=== PATIENT | female | born 1975 | race African-American/Black ===

== ENCOUNTER 2019-01-02 15:23 | Inpatient (IN) | payer OTHER ==
[2019-01-02] MEDS ORDERED: Sodium Chloride 0.9% 10 ML Syringe FLUSH PRN (19:49)
[2019-01-02] MEDS ORDERED: Nalbuphine 10 MG/1 ML Vial IVPUSH PRN (19:49)
[2019-01-02] MEDS ORDERED: Ondansetron 4 MG/2 ML SDV IVPUSH PRN (19:49)
--- NOTE | 2019-01-02 19:53 | PCM.LDHP ---
L&D History of Present Illness - General Date of Service: 01/02/19 Admit Problem/Dx: Patient Status Order with Admit Dx/Problem 01/02/19 19:49 Patient Status [ADT] Routine Admission Diagnosis/Problem Admission Diagnosis/Problem Advanced maternal age Source of Information: Patient History Limitations: Reports: No Limitations - History of Present Illness Introduction:: 43 y/o at 39 0/7 wks presents for IOL for AMA. Doing well today. Some contractions. No significant pain. - Related Data Allergies/Adverse Reactions: Allergies Allergy/AdvReac Type Severity Reaction Status Date / Time No Known Allergies Allergy Verified 01/02/19 21:27 Home Medications: Home Meds Pnv #14/Ferrous Fum/Folic Acid [Completenate] 1 each PO DAILY 01/02/19 [History] Past Medical History [employer] History: Reports: : 6 Para: 5 LMP (Approximate): - Infectious Disease History Infectious Disease History: Reports: Other (See Below) (Malaria) Social & Family History - Tobacco Use Smoking Status *Q: Never Smoker - Alcohol Use Alcohol Use History: No - Recreational Drug Use Recreational Drug Use: No H&P Review of Systems - Review of Systems: Review Of Systems: See Below General: Reports: No Symptoms Pulmonary: Reports: No Symptoms Cardiovascular: Reports: No Symptoms Gastrointestinal: Reports: No Symptoms Genitourinary: Reports: No Symptoms Musculoskeletal: Reports: No Symptoms Psychiatric: Reports: No Symptoms Neurological: Reports: No Symptoms L&D Exam - Exam Exam: See Below - OB Specific Contraction Intensity: Irritability Movement: Active Heart Tones: Present Heart Tones per Min: 145 Heart Rate (FHR) Variability: Moderate (6-25 bmp) Presentation: Vertex - Garcia Score Garcia Score Cervix Position: Midposition Garcia Score Consistency: Soft Garcia Score Effacement: 51-70% Garcia Score Dilation: 1-2 cm Garcia Score 's Station: -3 Garcia Score Total: 6 - Exam General: Alert, Oriented, Cooperative Lungs: Clear to Auscultation, Normal Respiratory Effort Cardiovascular: Regular Rate, Regular Rhythm GI/Abdominal Exam: Soft, Non-Tender Genitourinary: Normal external exam Extremities: Normal Inspection Skin: Warm, Dry, Intact - Patient Data Result Diagrams: 01/02/19 20:23 - Problem List (1) AMA (advanced maternal age) multigravida 35+ SNOMED Code(s): 578922332 ICD Code: O09.529 - SUPERVISION OF ELDERLY MULTIGRAVIDA, UNSPECIFIED TRIMESTER Status: Acute Current Visit: Yes Qualifiers: Trimester: third trimester Qualified Code(s): O09.523 - Supervision of elderly multigravida, third trimester (2) 39 weeks gestation of SNOMED Code(s): 81532465 ICD Code: Z3A.39 - 39 WEEKS GESTATION OF Status: Acute Current Visit: Yes Problem List Initiated/Reviewed/Updated: Yes Orders Last 24hrs: Active Orders 24 hr Category Date Time Status Patient Status [ADT] Routine ADT 01/02/19 19:49 Ordered Activity as Tolerated [RC] PFP Care 01/02/19 19:49 Ordered Communication Order [RC] ASDIRECTED Care 01/02/19 19:49 Ordered Communication Order [RC] ASDIRECTED Care 01/02/19 19:49 Ordered Communication Order [RC] ASDIRECTED Care 01/02/19 19:49 Ordered Heart Tones [RC] ASDIRECTED Care 01/02/19 19:50 Ordered Monitoring [RC] INTERMITTENT Care 01/02/19 19:49 Ordered Non Stress Test [RC] PER UNIT ROUTINE Care 01/02/19 19:49 Ordered Notify Provider [RC] ASDIRECTED Care 01/02/19 19:49 Ordered Notify Provider [RC] PRN Care 01/02/19 19:49 Ordered Peripheral IV Care [RC] . DIRECTED Care 01/02/19 19:50 Ordered Up ad Kim [RC] ASDIRECTED Care 01/02/19 19:50 Ordered Vaginal Exam [RC] ASDIRECTED Care 01/02/19 19:49 Ordered Vital Signs [RC] ASDIRECTED Care 01/02/19 19:49 Ordered Regular Diet [DIET] Diet 01/02/19 Breakfast Ordered CBC W/O DIFF,HEMOGRAM [HEME] Routine Lab 01/02/19 19:49 Ordered RAPID PLASMA REAGIN,RPR [CHEM] Routine Lab 01/02/19 19:49 Ordered TYPE AND SCREEN [BBK] Routine Lab 01/02/19 19:49 Ordered Lactated Ringers [Ringers, Lactated] 1,000 ml Med 01/02/19 20:00 Ordered IV ASDIRECTED Nalbuphine [Nubain] Med 01/02/19 19:49 Ordered 10 mg IVPUSH Q2H PRN Ondansetron [Zofran] Med 01/02/19 19:49 Ordered 4 mg IVPUSH Q4H PRN Oxytocin/Lactated Ringers [Pitocin in LR 10 Units/1,000 Med 01/02/19 20:00 Ordered ML] 10 unit in 1,000 ml IV .CONTINUOUS Oxytocin/Lactated Ringers [Pitocin in LR 10 Units/1,000 Med 01/02/19 20:00 Ordered ML] 10 unit in 1,000 ml IV TITRATE Sodium Chloride 0.9% [Saline Flush] Med 01/02/19 19:49 Ordered 10 ml FLUSH ASDIRECTED PRN Electronic Heart Tones Ext w TOCO [WOMSER] Ot 01/02/19 19:49 Ordered Routine Electronic Heart Tones Internal [WOMSER] Per Unit Ot 01/02/19 19:49 Ordered Routine Peripheral IV Insertion Adult [OM.PC] Routine Ot 01/02/19 19:49 Ordered Resuscitation Status Routine Resus Stat 01/02/19 19:49 Ordered Medication Orders Lactated Ringer's (Ringers, Lactated) 1,000 mls @ 40 mls/hr IV ASDIRECTED RADHAMES Oxytocin/Lactated Ringer's (Pitocin In Lr 10 Units/1,000 Ml) 10 unit in 1,000 mls @ 12 mls/hr IV TITRATE RADHAMES; Protocol Oxytocin/Lactated Ringer's (Pitocin In Lr 10 Units/1,000 Ml) 10 unit in 1,000 mls @ 500 mls/hr IV .CONTINUOUS RADHAMES Nalbuphine HCl (Nubain) 10 mg IVPUSH Q2H PRN PRN Reason: Pain Ondansetron HCl (Zofran) 4 mg IVPUSH Q4H PRN PRN Reason: Nausea/Vomiting Sodium Chloride (Saline Flush) 10 ml FLUSH ASDIRECTED PRN PRN Reason: Keep Vein Open Assessment/Plan Comment:: 43 y/o at 39 0/7 wks presents for IOL for AMA * Labs * GBS negative, no need for antibiotics * Pain management per patient preference * Anticipate
[2019-01-02] MEDS ORDERED: Oxytocin/Lactated Ringers 10 UNIT/1,000 ML BAG IV SCH (20:00)
[2019-01-02] MEDS: Lactated Ringers 1,000 ML IV SCH (21:30)
[2019-01-02] MEDS: Oxytocin/Lactated Ringers 10 UNIT/1,000 ML BAG IV SCH (21:34)
--- NOTE | 2019-01-03 06:34 | PCM.PNLD ---
Labor Progress Note - VS & Meds Vital Signs: Last Vital Signs Temp 36.7 C 01/02/19 20:48 Pulse 78 01/02/19 20:48 Resp 16 01/02/19 20:48 BP 117/83 01/02/19 20:48 Pulse Ox 98 01/02/19 20:48 Active Medications: Current Medications Lactated Ringer's (Ringers, Lactated) 1,000 mls @ 40 mls/hr IV ASDIRECTED RADHAMES Last Admin: 01/02/19 21:30 Dose: 40 mls/hr Oxytocin/Lactated Ringer's (Pitocin In Lr 10 Units/1,000 Ml) 10 unit in 1,000 mls @ 12 mls/hr IV TITRATE RADHAMES; Protocol Last Admin: 01/02/19 21:34 Dose: 2 munits/min, 12 mls/hr Oxytocin/Lactated Ringer's (Pitocin In Lr 10 Units/1,000 Ml) 10 unit in 1,000 mls @ 500 mls/hr IV .CONTINUOUS RADHAMES Nalbuphine HCl (Nubain) 10 mg IVPUSH Q2H PRN PRN Reason: Pain Ondansetron HCl (Zofran) 4 mg IVPUSH Q4H PRN PRN Reason: Nausea/Vomiting Sodium Chloride (Saline Flush) 10 ml FLUSH ASDIRECTED PRN PRN Reason: Keep Vein Open - Uterine Contractions Uterine Monitoring Mode: External [place] Contraction Intensity: Moderate Uterine Resting Tone: Soft - Monitoring Monitor Mode: External Ultrasound Heart Rate (FHR) Baseline: 135 Heart Rate (FHR) Variability: Moderate (6-25 bmp) Accelerations: Present, 15x15 Decelerations: None Strip Review: Category I - Vaginal Exam Dilation (cm): 4 - Labor Progress (Free Text) Labor Progress: Doing well. Pitocin at 12. AROM last night around 0200. Rating contractions as a 6/10. Continue present management
[2019-01-03] MEDS: Lactated Ringers 1,000 ML IV SCH (12:14)
[2019-01-03] MEDS: Oxytocin/Lactated Ringers 10 UNIT/1,000 ML BAG IV SCH (13:45)
--- NOTE | 2019-01-03 17:05 | PCM.DEL ---
L & D Note - General Info Date of Service: 01/03/19 - Delivery Note Labor: Induced by ARM, Induced by Oxytocin Cervical Ripening Method: Balloon Device Delivery Outcome: Livebirth Infant Delivery Mode: Vacuum Extraction Presentation: Right Occiput Anterior (SOLANGE) Nuchal Cord: None Anesthesia Type: None Amniotic Fluid Description: Clear Episiotomy Type: None Laceration: None Placenta: Intact, Spontaneous Cord: 3 Vessels Estimated Blood Loss: 200 Resuscitation Needed: Yes [place]: Bulb Syringe, Stimulated, Warmed, [place] Used, Warmer Used Delivery Comments (Free Text/Narrative):: The patient was pushing in the dorsal lithotomy position. Sterile vaginal exam complete/complete/+2 station. head in SOLANGE presentation. Maternal pushing effort was good and the pelvis was felt to be adequate for an instrument assisted delivery. Given maternal exhaustion and patient request for assistance the decision was made to proceed with vacuum assisted vaginal delivery. The mushroom cup was placed without difficulty with care to avoid the vaginal side redd. Subsequent vacuum assisted vaginal delivery with pushing. Total pressure applied 550 mmHG over 5 minutes/4 contractions. Total pop offs 0. Suction was removed following delivery of the head. No nuchal cord present. The remainder of the delivered without difficulty. The umbilical cord was clamped and cut and the was taken to warmer for assessment. Placenta allowed time to separate and expelled intact. Inspection of the perineum following delivery with no lacerations. Vacuum Extractor Progress Note - Alternative Labor Strategies Considered Alternative Labor Strategies Considered:: Reports: Yes Strategies Considered:: Reports: Contraction Intensity Adequate, Position Changes Used to Facilitate Rotation & Descent, Empty Bladder Indications Considered:: Reports: Yes Indications:: Reports: Shortening of 2nd Stage for Maternal Benefit Time Out:: Reports: Yes - Patient Prepared Patient Prepared:: Reports: Yes Informed Consent:: Reports: Verbal Risks: Reports: Yes Risks Include:: Reports: Laceration, Maternal Injury, Other Anesthesia/Analgesia Adequate:: Reports: Yes - Probability of Success High Probability of Success:: Reports: Yes Weight Estimated:: Reports: AGA Patient Diabetic:: Reports: No Pelvis Adequate:: Reports: Yes Position:: SOLANGE Asynclitic:: Reports: No Station:: +2 - Application Time Maximum Application Time & Number of Pop-Offs Predetermined:: Reports: Yes Maximum Pressure Maintained in [place] (cm Hg):: 550 Total Application Time (min): *max=20min: 5 Number of Times Cup Disengaged:: 0 Type of Vacuum Used:: Reports: Cup: Mushroom type Vacuum Extraction: Successful - Exit Strategy Exit strategy available:: Reports: Yes and resuscitation teams readily available:: Reports: Yes - General Info Date of Service: 01/03/19 - Patient Data Vitals - Most Recent: Last Vital Signs Temp 36.7 C 01/02/19 20:48 Pulse 68 01/03/19 08:02 Resp 16 01/02/19 20:48 BP 121/77 01/03/19 01:46 Pulse Ox 98 01/02/19 20:48 Weight - Most Recent: 62.596 kg I&O - Last 24 Hours: Intake & Output 01/03/19 01/03/19 01/03/19 06:59 14:59 22:59 Intake Total 1950 Balance 1950 Lab Results Last 24 Hours: Laboratory Results - last 24 hr 01/02/19 01/02/19 01/02/19 Range/Units 20:23 20:23 20:23 WBC 8.23 (3.98-10.04) K/mm3 RBC 4.04 (3.98-5.22) M/mm3 Hgb 9.8 L (11.2-15.7) gm/L Hct 31.7 L (34.1-44.9) % MCV 78.5 L (79.4-94.8) fl MCH 24.3 L (25.6-32.2) pg MCHC 30.9 L (32.2-35.5) g/dl RDW Std Deviation 41.1 (36.4-46.3) fL Plt Count 270 (182-369) K/mm3 MPV 9.4 (9.4-12.3) fl Cord ABG pH (7.22-7.32) Cord ABG pCO2 (42-58) Cord ABG pO2 (12-24) Cord ABG HCO3 (24-26) Cord ABG Base Excess (-5.5-0.1) RPR Non-reactive (NONREACTIVE) Blood Type O POSITIVE Gel Antibody Screen Negative 01/03/19 Range/Units 15:30 WBC (3.98-10.04) K/mm3 RBC (3.98-5.22) M/mm3 Hgb (11.2-15.7) gm/L Hct (34.1-44.9) % MCV (79.4-94.8) fl MCH (25.6-32.2) pg MCHC (32.2-35.5) g/dl RDW Std Deviation (36.4-46.3) fL Plt Count (182-369) K/mm3 MPV (9.4-12.3) fl Cord ABG pH 7.24 (7.22-7.32) Cord ABG pCO2 49.5 (42-58) Cord ABG pO2 32 H (12-24) Cord ABG HCO3 20.5 L (24-26) Cord ABG Base Excess -6.7 L (-5.5-0.1) RPR (NONREACTIVE) Blood Type Gel Antibody Screen Med Orders - Current: Current Medications Lactated Ringer's (Ringers, Lactated) 1,000 mls @ 40 mls/hr IV ASDIRECTED RADHAMES Last Admin: 01/03/19 12:14 Dose: 40 mls/hr Oxytocin/Lactated Ringer's (Pitocin In Lr 10 Units/1,000 Ml) 10 unit in 1,000 mls @ 12 mls/hr IV TITRATE RADHAMES; Protocol Last Admin: 01/03/19 13:45 Dose: 16 munits/min, 96 mls/hr Oxytocin/Lactated Ringer's (Pitocin In Lr 10 Units/1,000 Ml) 10 unit in 1,000 mls @ 500 mls/hr IV .CONTINUOUS RADHAMES Nalbuphine HCl (Nubain) 10 mg IVPUSH Q2H PRN PRN Reason: Pain Last Admin: 01/03/19 12:12 Dose: 10 mg Ondansetron HCl (Zofran) 4 mg IVPUSH Q4H PRN PRN Reason: Nausea/Vomiting Sodium Chloride (Saline Flush) 10 ml FLUSH ASDIRECTED PRN PRN Reason: Keep Vein Open - Problem List & Annotations (1) AMA (advanced maternal age) multigravida 35+ SNOMED Code(s): 423003187 Code(s): O09.529 - SUPERVISION OF ELDERLY MULTIGRAVIDA, UNSPECIFIED TRIMESTER Status: Acute Current Visit: Yes Qualifiers: Trimester: third trimester Qualified Code(s): O09.523 - Supervision of elderly multigravida, third trimester (2) 39 weeks gestation of SNOMED Code(s): 61717306 Code(s): Z3A.39 - 39 WEEKS GESTATION OF Status: Acute Current Visit: Yes (3) Vacuum extraction, delivered, current hospitalization SNOMED Code(s): 666758509 Code(s): O66.5 - ATTEMPTED APPLICATION OF VACUUM EXTRACTOR AND FORCEPS Status: Acute Current Visit: Yes - Problem List Review Problem List Initiated/Reviewed/Updated: Yes - My Orders Last 24 Hours: My Active Orders 01/02/19 19:49 Patient Status [ADT] Routine Activity as Tolerated [RC] PFP Communication Order [RC] ASDIRECTED Communication Order [RC] ASDIRECTED Communication Order [RC] ASDIRECTED Notify Provider [RC] ASDIRECTED Notify Provider [RC] PRN Nalbuphine [Nubain] 10 mg IVPUSH Q2H PRN Ondansetron [Zofran] 4 mg IVPUSH Q4H PRN Sodium Chloride 0.9% [Saline Flush] 10 ml FLUSH ASDIRECTED PRN Electronic Heart Tones Ext w TOCO [WOMSER] Routine Electronic Heart Tones Internal [WOMSER] Per Unit Routine Peripheral IV Insertion Adult [OM.PC] Routine Resuscitation Status Routine 01/02/19 19:50 Heart Tones [RC] ASDIRECTED Peripheral IV Care [RC] . DIRECTED Up ad Kim [RC] ASDIRECTED 01/02/19 20:00 Lactated Ringers [Ringers, Lactated] 1,000 ml IV ASDIRECTED Oxytocin/Lactated Ringers [Pitocin in LR 10 Units/1,000 ML] 10 unit in 1,000 ml IV .CONTINUOUS Oxytocin/Lactated Ringers [Pitocin in LR 10 Units/1,000 ML] 10 unit in 1,000 ml IV TITRATE - Assessment Assessment:: 43 y/o G6 now P6006 PPD#0 from [facility] at 39 1/7 wks - Plan Plan:: [facility] * Routine cares * Encourage breast feeding * Discharge home in 1-2 days
[2019-01-03] MEDS ORDERED: Witch Hazel Medicated Pads 40/Jar TOP PRN (17:08)
[2019-01-03] MEDS ORDERED: Lanolin 100% Cream 7 GM Tube TOP PRN (17:08)
[2019-01-03] MEDS ORDERED: Benzocaine/Menthol 20%-0.5% Spray 56 GM Canister TOP PRN (17:08)
[2019-01-03] MEDS: Ibuprofen 600 MG Tab PO PRN (17:44)
[2019-01-04] MEDS: Ibuprofen 600 MG Tab PO PRN ×3 (00:06→16:13)
--- NOTE | 2019-01-04 07:59 | PCM.PNPP ---
- General Info Date of Service: 01/04/19 Functional Status: Reports: Pain Controlled, Tolerating Diet, Ambulating, Urinating - Review of Systems General: Reports: No Symptoms Pulmonary: Reports: No Symptoms Cardiovascular: Reports: No Symptoms Gastrointestinal: Reports: Other (significant cramping) Genitourinary: Reports: No Symptoms Musculoskeletal: Reports: No Symptoms Neurological: Reports: No Symptoms - Patient Data Vital Signs - Most Recent: Last Vital Signs Temp 36.8 C 01/04/19 05:25 Pulse 71 01/04/19 05:25 Resp 14 01/04/19 05:25 BP 93/57 L 01/04/19 05:25 Pulse Ox 98 01/04/19 05:25 Weight - Most Recent: 62.596 kg I&O - Last 24 Hours: Intake & Output 01/03/19 01/04/19 01/04/19 22:59 06:59 14:59 Intake Total 180 Balance 180 Lab Results - Last 24 Hours: Laboratory Results - last 24 hr 01/02/19 01/03/19 Range/Units 20:23 15:30 Cord ABG pH 7.24 (7.22-7.32) Cord ABG pCO2 49.5 (42-58) Cord ABG pO2 32 H (12-24) Cord ABG HCO3 20.5 L (24-26) Cord ABG Base Excess -6.7 L (-5.5-0.1) RPR Non-reactive (NONREACTIVE) Med Orders - Current: Current Medications Acetaminophen (Tylenol) 650 mg PO Q4H PRN PRN Reason: mild pain or fever Benzocaine/Menthol (Dermoplast Pain Relief [place]) 0 gm TOP ASDIRECTED PRN PRN Reason: Perineal Comfort Measure Emollient Ointment (Lansinoh Hpa) 0 gm TOP ASDIRECTED PRN PRN Reason: Sore Nipples Ibuprofen (Motrin) 600 mg PO Q6H PRN PRN Reason: Mild pain or fever Last Admin: 01/04/19 07:56 Dose: 600 mg Witch Lorena (Tucks) 1 pad TOP ASDIRECTED PRN PRN Reason: Perineal Comfort Measure Discontinued Medications Lactated Ringer's (Ringers, Lactated) 1,000 mls @ 40 mls/hr IV ASDIRECTED RADHAMES Last Admin: 01/03/19 12:14 Dose: 40 mls/hr Oxytocin/Lactated Ringer's (Pitocin In Lr 10 Units/1,000 Ml) 10 unit in 1,000 mls @ 12 mls/hr IV TITRATE RADHAMES; Protocol Last Titration: 01/03/19 15:25 Dose: 500 mls/hr Oxytocin/Lactated Ringer's (Pitocin In Lr 10 Units/1,000 Ml) 10 unit in 1,000 mls @ 500 mls/hr IV .CONTINUOUS RADHAMES Nalbuphine HCl (Nubain) 10 mg IVPUSH Q2H PRN PRN Reason: Pain Last Admin: 01/03/19 12:12 Dose: 10 mg Ondansetron HCl (Zofran) 4 mg IVPUSH Q4H PRN PRN Reason: Nausea/Vomiting Sodium Chloride (Saline Flush) 10 ml FLUSH ASDIRECTED PRN PRN Reason: Keep Vein Open - Interaction Disposition, : [place] in Room with Family Interaction: Holding Infant Feeding: Attempted ; Nursed Fair/Poor Support Person: Significant Other - Recovery Exam Fundal Tone: Firm Fundal Level: 1 Fingerbreadths Below Umbilicus Fundal Placement: Midline Lochia Amount: Small Lochia Color: Rubra/Red Perineum Description: Intact, Minimal Bruising/Swelling Bladder Status: Voiding - Exam General: Alert, Oriented, Cooperative GI/Abdominal Exam: Soft, Non-Tender Extremities: Normal Inspection Skin: Warm, Dry, Intact - Problem List & Annotations (1) AMA (advanced maternal age) multigravida 35+ SNOMED Code(s): 130153206 Code(s): O09.529 - SUPERVISION OF ELDERLY MULTIGRAVIDA, UNSPECIFIED TRIMESTER Status: Acute Current Visit: Yes Qualifiers: Trimester: third trimester Qualified Code(s): O09.523 - Supervision of elderly multigravida, third trimester (2) 39 weeks gestation of SNOMED Code(s): 13215689 Code(s): Z3A.39 - 39 WEEKS GESTATION OF Status: Acute Current Visit: Yes (3) Vacuum extraction, delivered, current hospitalization SNOMED Code(s): 676462577 Code(s): O66.5 - ATTEMPTED APPLICATION OF VACUUM EXTRACTOR AND FORCEPS Status: Acute Current Visit: Yes - Problem List Review Problem List Initiated/Reviewed/Updated: Yes - My Orders Last 24 Hours: My Active Orders 01/03/19 17:08 Activity as Tolerated [RC] PER UNIT ROUTINE Vital Signs [RC] 03,09,15,21 Acetaminophen [Tylenol] 650 mg PO Q4H PRN Benzocaine/Menthol [Dermoplast Pain Relief [place]] See Dose Instructions TOP ASDIRECTED PRN Ibuprofen [Motrin] 600 mg PO Q6H PRN Lanolin [Lansinoh HPA] See Dose Instructions TOP ASDIRECTED PRN Witch [place]orena [Tucks] 1 pad TOP ASDIRECTED PRN Assess Lochia [WOMSER] Per Unit Routine Assess Uterine Involution [WOMSER] Per Unit Routine Breast Pump [WOMSER] Per Unit Routine Ice Therapy [OM.PC] Per Unit Routine Medication Administration Instruction [OM.PC] Routine Perineal Care [OM.PC] Per Unit Routine Peripheral IV Discontinue [OM.PC] Routine Sitz Bath [OM.PC] Per Unit Routine 01/03/19 17:15 Heat Therapy [OM.PC] PRN 01/03/19 Dinner Regular Diet [DIET] 01/04/19 17:15 Heat Therapy [OM.PC] PRN - Assessment Assessment:: 43 y/o G6 now P6006 PPD#1 from [facility] - Plan Plan:: [facility] * Routine cares * Breast feeding * Discharge home today vs tomorrow pending clinical course
[2019-01-04] MEDS: Acetaminophen 325 MG Tab PO PRN (20:10)
[2019-01-05] MEDS: Ibuprofen 600 MG Tab PO PRN (03:56)
--- NOTE | 2019-01-05 06:46 | PCM.PNPP ---
- General Info Date of Service: 01/05/19 Functional Status: Reports: Pain Controlled, Tolerating Diet, Ambulating, Urinating - Review of Systems General: Reports: No Symptoms Pulmonary: Reports: No Symptoms Cardiovascular: Reports: No Symptoms Gastrointestinal: Reports: Other (strong cramping) Genitourinary: Reports: No Symptoms Musculoskeletal: Reports: No Symptoms Neurological: Reports: No Symptoms - Patient Data Vital Signs - Most Recent: Last Vital Signs Temp 37.1 C 01/05/19 04:09 Pulse 76 01/05/19 04:09 Resp 12 01/05/19 04:09 BP 117/92 H 01/05/19 04:09 Pulse Ox 98 01/05/19 04:09 Weight - Most Recent: 62.596 kg I&O - Last 24 Hours: Intake & Output 01/04/19 01/04/19 01/05/19 14:59 22:59 06:59 Intake Total 120 Balance 120 Med Orders - Current: Current Medications Acetaminophen (Tylenol) 650 mg PO Q4H PRN PRN Reason: mild pain or fever Last Admin: 01/04/19 20:10 Dose: 650 mg Benzocaine/Menthol (Dermoplast Pain Relief [place]) 0 gm TOP ASDIRECTED PRN PRN Reason: Perineal Comfort Measure Emollient Ointment (Lansinoh Hpa) 0 gm TOP ASDIRECTED PRN PRN Reason: Sore Nipples Ibuprofen (Motrin) 600 mg PO Q6H PRN PRN Reason: Mild pain or fever Last Admin: 01/05/19 03:56 Dose: 600 mg Witch [place]ore[place] (Tucks) 1 pad TOP ASDIRECTED PRN PRN Reason: Perineal Comfort Measure Discontinued Medications Lactated Ringer's (Ringers, Lactated) 1,000 mls @ 40 mls/hr IV ASDIRECTED RADHAMES Last Admin: 01/03/19 12:14 Dose: 40 mls/hr Oxytocin/Lactated Ringer's (Pitocin In Lr 10 Units/1,000 Ml) 10 unit in 1,000 mls @ 12 mls/hr IV TITRATE RADHAMES; Protocol Last Titration: 01/03/19 15:25 Dose: 500 mls/hr Oxytocin/Lactated Ringer's (Pitocin In Lr 10 Units/1,000 Ml) 10 unit in 1,000 mls @ 500 mls/hr IV .CONTINUOUS RADHAMES Nalbuphine HCl (Nubain) 10 mg IVPUSH Q2H PRN PRN Reason: Pain Last Admin: 01/03/19 12:12 Dose: 10 mg Ondansetron HCl (Zofran) 4 mg IVPUSH Q4H PRN PRN Reason: Nausea/Vomiting Sodium Chloride (Saline Flush) 10 ml FLUSH ASDIRECTED PRN PRN Reason: Keep Vein Open - Infant Interaction Infant Disposition, : in Room with Family Interaction: Holding Infant Infant Feeding: Attempted ; Nursed Fair/Poor Support Person: Significant Other - Recovery Exam Fundal Tone: Firm Fundal Level: At Umbilicus Fundal Placement: Midline Lochia Amount: Small Lochia Color: Rubra/Red Perineum Description: Intact, Minimal Bruising/Swelling Episiotomy/Laceration: None Bladder Status: Voiding - Exam General: Alert, Oriented, Cooperative GI/Abdominal Exam: Soft, Non-Tender Extremities: Normal Inspection Skin: Warm, Dry, Intact - Problem List & Annotations (1) AMA (advanced maternal age) multigravida 35+ SNOMED Code(s): 588893961 Code(s): O09.529 - SUPERVISION OF ELDERLY MULTIGRAVIDA, UNSPECIFIED TRIMESTER Status: Acute Current Visit: Yes Qualifiers: Trimester: third trimester Qualified Code(s): O09.523 - Supervision of elderly multigravida, third trimester (2) 39 weeks gestation of SNOMED Code(s): 51476764 Code(s): Z3A.39 - 39 WEEKS GESTATION OF Status: Acute Current Visit: Yes (3) Vacuum extraction, delivered, current hospitalization SNOMED Code(s): 674824312 Code(s): O66.5 - ATTEMPTED APPLICATION OF VACUUM EXTRACTOR AND FORCEPS Status: Acute Current Visit: Yes - Problem List Review Problem List Initiated/Reviewed/Updated: Yes - My Orders Last 24 Hours: My Active Orders 01/04/19 17:15 Heat Therapy [OM.PC] PRN 01/05/19 06:45 Ready for Discharge [RC] PER UNIT ROUTINE - Assessment Assessment:: 43 y/o G6 now P6006 PPD#2 from [facility] - Plan Plan:: [facility] * Routine cares * Breast feeding * Discharge home today
--- NOTE | 2019-01-05 06:46 | PCM.DCSUM1 ---
Discharge Summary - Discharge Data Discharge Date: 01/05/19 Discharge Disposition: Home, Self-Care 01 Condition: Good - Discharge Diagnosis/Problem(s) (1) AMA (advanced maternal age) multigravida 35+ SNOMED Code(s): 328728190 ICD Code: O09.529 - SUPERVISION OF ELDERLY MULTIGRAVIDA, UNSPECIFIED TRIMESTER Status: Acute Current Visit: Yes Qualifiers: Trimester: third trimester Qualified Code(s): O09.523 - Supervision of elderly multigravida, third trimester (2) 39 weeks gestation of SNOMED Code(s): 90600543 ICD Code: Z3A.39 - 39 WEEKS GESTATION OF Status: Acute Current Visit: Yes (3) Vacuum extraction, delivered, current hospitalization SNOMED Code(s): 048083252 ICD Code: O66.5 - ATTEMPTED APPLICATION OF VACUUM EXTRACTOR AND FORCEPS Status: Acute Current Visit: Yes - Patient Summary/Data Complications: None Consults: None Recommended Follow-up Testing/Procedures: Follow up in 3 weeks for check Hospital Course: 43 y/o at 39 0/7 wks who presents for IOL for AMA. Done with machado bulb, pitocin, and AROM. Made slow, but steady change to complete dilation. Began pushing, but after about 1hr of pushing became exhausted and requested assistance. VAVD performed. This was uncomplicated, see delivery note. patient did well and was discharged home on PPD#2 - Patient Instructions Diet: Regular Diet as Tolerated Activity: As Tolerated Activity, Other: Pelvic rest for 6 weeks Driving: May Drive Today Showering/Bathing: May Shower Showering/Bathing, Other: May Bathe Notify Provider of: Fever, Increased Pain, Swelling and Redness, Drainage, Nausea and/or Vomiting - Discharge Plan *PRESCRIPTION DRUG MONITORING PROGRAM REVIEWED*: Not Applicable *COPY OF PRESCRIPTION DRUG MONITORING REPORT IN PATIENT OREN: Not Applicable Home Medications: Home Meds Pnv #14/Ferrous Fum/Folic Acid [Completenate] 1 each PO DAILY 01/02/19 [History] Ibuprofen [Motrin] 600 mg PO Q6H PRN tablet 01/04/19 [Rx] Referrals: Lashay Grant MD [Primary Care Provider] - (3 weeks for check ) - Discharge Summary/Plan Comment DC Time >30 min.: No - Patient Data Vitals - Most Recent: Last Vital Signs Temp 37.1 C 01/05/19 04:09 Pulse 76 01/05/19 04:09 Resp 12 01/05/19 04:09 BP 117/92 H 01/05/19 04:09 Pulse Ox 98 01/05/19 04:09 Weight - Most Recent: 62.596 kg I&O - Last 24 hours: Intake & Output 01/04/19 01/04/19 01/05/19 14:59 22:59 06:59 Intake Total 120 Balance 120 Med Orders - Current: Current Medications Acetaminophen (Tylenol) 650 mg PO Q4H PRN PRN Reason: mild pain or fever Last Admin: 01/04/19 20:10 Dose: 650 mg Benzocaine/Menthol (Dermoplast Pain Relief [place]) 0 gm TOP ASDIRECTED PRN PRN Reason: Perineal Comfort Measure Emollient Ointment (Lansinoh Hpa) 0 gm TOP ASDIRECTED PRN PRN Reason: Sore Nipples Ibuprofen (Motrin) 600 mg PO Q6H PRN PRN Reason: Mild pain or fever Last Admin: 01/05/19 03:56 Dose: 600 mg Witch Lorena (Tucks) 1 pad TOP ASDIRECTED PRN PRN Reason: Perineal Comfort Measure Discontinued Medications Lactated Ringer's (Ringers, Lactated) 1,000 mls @ 40 mls/hr IV ASDIRECTED RADHAMES Last Admin: 01/03/19 12:14 Dose: 40 mls/hr Oxytocin/Lactated Ringer's (Pitocin In Lr 10 Units/1,000 Ml) 10 unit in 1,000 mls @ 12 mls/hr IV TITRATE RADHAMES; Protocol Last Titration: 01/03/19 15:25 Dose: 500 mls/hr Oxytocin/Lactated Ringer's (Pitocin In Lr 10 Units/1,000 Ml) 10 unit in 1,000 mls @ 500 mls/hr IV .CONTINUOUS RADHAMES Nalbuphine HCl (Nubain) 10 mg IVPUSH Q2H PRN PRN Reason: Pain Last Admin: 01/03/19 12:12 Dose: 10 mg Ondansetron HCl (Zofran) 4 mg IVPUSH Q4H PRN PRN Reason: Nausea/Vomiting Sodium Chloride (Saline Flush) 10 ml FLUSH ASDIRECTED PRN PRN Reason: Keep Vein Open
[2019-01-05] MEDS: Acetaminophen 325 MG Tab PO PRN (08:13)
== END 2019-01-05 09:50 | disposition home or self-care (01) | DRG 807 ==
LOC: JD.OB 15:23 → UNDOADMOB 19:14 → JD.OB 19:53 → UNDOADMOB 19:53 → OBSVTOIN 01-03 15:23 → JD.OB 01-03 15:24
PROVIDERS: ADMIT Obstetrics & Gynecology; ATTEND Obstetrics & Gynecology
PROC: 3E0P7VZ Introduction of Hormone into Female Reproductive, Via Natural or Artificial Opening (ICD-10-PCS; principal; 2019-01-03)
PROC: 10D07Z6 Extraction of Products of Conception, Vacuum, Via Natural or Artificial Opening (ICD-10-PCS; 2019-01-03)
PROC: 10907ZC Drainage of Amniotic Fluid, Therapeutic from Products of Conception, Via Natural or Artificial Opening (ICD-10-PCS; 2019-01-03)
DX: O66.5 Attempted application of vacuum extractor and forceps (principal); Z37.0 Single live birth; Z3A.39 39 weeks gestation of pregnancy
CPT/HCPCS: 36415; 36600; 59025; 59409; 82803; 85027; 86592; 86850; 86900; 86901; A9270-GY; J2300; J2590; J7120

== ENCOUNTER 2019-01-11 10:07 | Emergency (ER) | payer OTHER ==
[2019-01-11] MEDS ORDERED: Cyclobenzaprine 10 MG Tab PO ONE (10:41)
[2019-01-11] MEDS ORDERED: Ketorolac 60 MG/2 ML SDV IM ONE (10:41)
--- NOTE | 2019-01-11 10:47 | EDM.PDOC ---
ED HPI GENERAL MEDICAL PROBLEM - General Chief Complaint: Neck Problem Stated Complaint: NECK PAIN Time Seen by Provider: 01/11/19 10:27 Source of Information: Reports: Patient History Limitations: Reports: No Limitations - History of Present Illness INITIAL COMMENTS - FREE TEXT/NARRATIVE: The patient presents with left sided neck pain. This started on Wednesday. She did not fall or hurt her neck. She delivered her baby last week. She has been breast feeding. She has been sleeping in odd positions. She says the pain shoot down her left arm and she has some tingling. She has no history of neck problems. She has been trying heat and ibuprofen and it is not helping She has no fever, chills, cough, chest pain or shortness of breath. She has no weakness in her arms. 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 Left Neck Pain Score (Numeric/FACES): 8 - Related Data Allergies Allergy/AdvReac Type Severity Reaction Status Date / Time No Known Allergies Allergy Verified 01/11/19 10:24 Home Meds: Home Meds Pnv #14/Ferrous Fum/Folic Acid [Completenate] 1 each PO DAILY 01/02/19 [History] Ibuprofen [Motrin] 600 mg PO Q6H PRN tablet 01/04/19 [Rx] Cyclobenzaprine [Flexeril] 10 mg PO TID PRN #20 tab 01/11/19 [Rx] Naproxen [Naprosyn] 500 mg PO Q12HR PRN #30 tab 01/11/19 [Rx] Past Medical History Gastrointestinal History: Reports: Other (See Below) Other Gastrointestinal History: hx 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: Hematologic History: Reports: Anemia - Infectious Disease History Infectious Disease History: Reports: Other (See Below) (Malaria) Other Infectious Disease History: Hx of malaria Social & Family History - Family History Family Medical History: Noncontributory - Caffeine Use Caffeine Use: Reports: None ED ROS GENERAL - Review of Systems Review Of Systems: See Below Constitutional: Reports: No Symptoms HEENT: Reports: No Symptoms Respiratory: Reports: No Symptoms Cardiovascular: Reports: No Symptoms Endocrine: Reports: No Symptoms GI/Abdominal: Reports: No Symptoms : Reports: No Symptoms Musculoskeletal: Reports: Neck Pain Skin: Reports: No Symptoms ED EXAM, UPPER BACK/NECK PAIN - Physical Exam Exam: See Below Exam Limited By: No Limitations General Appearance: Alert, No Apparent Distress Ears Exam: Normal External Exam Nose Exam: Normal Inspection Head Exam: Atraumatic, Normocephalic Neck Exam: Other (Pain upon palpation to the left neck. Good sensation and pulses distally.) Cardiovascular/Respiratory: Regular Rate, Rhythm, No M/R/G, Normal Breath Sounds , No Respiratory Distress GI/Abdominal: Soft, Non-Tender, No Organomegaly, No Mass Back Exam: Normal Inspection Extremities: Normal Inspection Course - Vital Signs Last Recorded V/S: Last Vital Signs Temp 98.7 F 01/11/19 10:25 Pulse 51 L 01/11/19 10:25 Resp 16 01/11/19 10:25 BP 153/87 H 01/11/19 10:25 Pulse Ox 97 01/11/19 10:25 - Orders/Labs/Meds Orders: Active Orders 24 hr Category Date Time Status Cervical Spine 2V or 3V [CR] Stat Exams 01/11/19 10:42 Taken Meds: Medications Discontinued Medications Generic Name Dose Route Start Last Admin Trade Name Andreaq PRN Reason Stop Dose Admin Cyclobenzaprine HCl 10 mg 01/11/19 10:41 01/11/19 10:57 Flexeril PO 01/11/19 10:42 10 mg ONETIME ONE Administration Ketorolac Tromethamine 60 mg 01/11/19 10:41 01/11/19 10:56 Toradol IM 01/11/19 10:42 60 mg ONETIME ONE Administration - Re-Assessments/Exams Free Text/Narrative Re-Assessment/Exam: 01/11/19 11:16 I ordered toradol 60mg IM, flexeril 10mg PO and a neck x-ray. 01/11/19 11:30 She is feeling better. I will get her on some naprosyn and flexeril. Departure - Departure Time of Disposition: 11:35 Disposition: Home, Self-Care 01 Condition: Good Clinical Impression: Cervical radiculopathy - Discharge Information *PRESCRIPTION DRUG MONITORING PROGRAM REVIEWED*: No *COPY OF PRESCRIPTION DRUG MONITORING REPORT IN PATIENT OREN: No Prescriptions: Naproxen [Naprosyn] 500 mg PO Q12HR PRN #30 tab PRN Reason: Pain Cyclobenzaprine [Flexeril] 10 mg PO TID PRN #20 tab PRN Reason: Pain Referrals: PCP,None [Primary Care Provider] - Forms: ED Department Discharge Additional Instructions: Take the naprosyn every 12 hours as needed for pain. Take flexeril 10mg every 8 hours as needed for pain. Ice your neck for 15 minutes 3 times per day. Follow up with your doctor within 1 week. Please return if you are worse. - My Orders Last 24 Hours: My Active Orders 01/11/19 10:42 Cervical Spine 2V or 3V [CR] Stat - Assessment/Plan Last 24 Hours: My Active Orders 01/11/19 10:42 Cervical Spine 2V or 3V [CR] Stat
--- NOTE | 2019-01-11 16:33 | CR ---
Cervical spine: AP, lateral, odontoid and swimmer's view of the cervical spine was obtained. Comparison: No previous study. Vertebral body heights and disc spaces are maintained. Prevertebral soft tissues are normal. Mild scoliosis is seen. No fracture or subluxation is appreciated. Impression: 1. Mild scoliosis. Cervical spine study is otherwise unremarkable. Diagnostic code #2
== END 2019-01-11 11:49 | disposition home or self-care (01) ==
LOC: JD.ED 10:07
DX: O90.89 Other complications of the puerperium, not elsewhere classified (principal); M54.12 Radiculopathy, cervical region; O90.81 Anemia of the puerperium; Z79.899 Other long term (current) drug therapy
CPT/HCPCS: 72040; 96372; 99283; A9270; J1885